=== PATIENT | male | born 1955 | race Caucasian/White ===

== ENCOUNTER → 2024-01-28 | Outpatient (CLI) | payer OTHER, SELFPAY ==
--- NOTE | 2024-01-28 13:00 | XR_ITS ---
Examination: Steroid injection right hip joint with imaging guidance Fluoroscopy AP right hip single view. Exam date and time: January 28, 2024 1239 hours INDICATIONS: Right hip pain 2 years, osteoarthritis right hip Informed consent provided. Technique: A timeout was completed verifying correct patient, procedure, site, positioning. The patient was placed in supine position appropriate for the steroid injection The patient's site was prepped and draped in sterile fashion 5 cc 1% lidocaine administered locally for anesthesia. Sterile drape applied, maximum barrier sterile technique. Utilizing fluoroscopic guidance, 23-gauge needle placed in the right hip joint 1 cc Kenalog 40 in 5 cc 0.25% Marcaine introduced into the right hip joint The patient was in satisfactory and stable condition on completion of the procedure Attending radiologist was present for the entire procedure Estimated blood loss 0 cc. Impression: Successful steroid injection right hip joint with imaging guidance Fluoroscopy 0.1 minute Radiation dose 2.35 milligray 1 spot AP fluoroscopic right hip film .
== END | disposition home or self-care (01) ==
PROVIDERS: PCP Nurse Practitioner Family; Referring Provider Nurse Practitioner Family; Visit Provider Nurse Practitioner Family
DX: M54.17 Radiculopathy, lumbosacral region (principal)
CPT/HCPCS: 20610; 77002

== ENCOUNTER → 2024-02-04 | Outpatient (CLI) | payer OTHER, SELFPAY ==
--- NOTE | 2024-02-04 14:30 | XR_ITS ---
Examination: MRI lumbar spine without contrast Date and time of exam: February 04, 2024 1502 hours INDICATIONS: Low back pain radiating down the right leg beginning 6 weeks ago TECHNIQUE: Multiple MRI axial sagittal lumbar spine images FINDINGS: Adequate alignment lumbar vertebral bodies on the lateral view Significant disc narrowing L4-L5 severe disc narrowing L5-S1 No lumbar fracture L5-S1 4 mm central lumbar disc bulge contiguous with the right and left S1 nerve roots and producing mild right L5 ganglionic compression L4-L5 partially extruded central left paracentral 5 mm disc bulge displacing the left L5 nerve root L3-L4 4 mm central lumbar disc bulge L2-L3 no disc protrusion L1-L2 no disc protrusion Impression: L5-S1 4 mm central lumbar disc bulge contiguous with the right and left S1 nerve roots and producing mild right L5 ganglionic compression L4-L5 5 mm partially extruded central left paracentral disc displacing the left L5 nerve root L3-L4 4 mm central lumbar disc
== END | disposition home or self-care (01) ==
PROVIDERS: PCP Nurse Practitioner Family; Referring Provider Nurse Practitioner Family; Visit Provider Nurse Practitioner Family
DX: M51.379 Other intervertebral disc degeneration, lumbosacral region without mention of lumbar back pain or lower extremity pain (principal); M51.369 Other intervertebral disc degeneration, lumbar region without mention of lumbar back pain or lower extremity pain; M51.26 Other intervertebral disc displacement, lumbar region; G95.20 Unspecified cord compression
CPT/HCPCS: 72148

== ENCOUNTER 2024-03-17 07:55 | Day surgery (SDC) | payer OTHER, SELFPAY ==
[2024-03-17] VITALS (13 sets, daily range): BP systolic 115–139; BP diastolic 74–94; PULSE 48–64; RESP 11–19; TEMP 36.2–37; O2SAT 95–99; BMI 32.4
--- NOTE | 2024-03-17 08:20 | SUR.PREOP ---
Most medical hx gather from records, pt denies having depression, acid reflux or GERD and BPH however pt is taking medications for tx.
--- NOTE | 2024-03-17 08:28 | SUR.PREOP ---
Pt did not bring list of home meds as asked during the phone called on Sunday. Pt confirmed that the meds on H&P is accurate and that those are the only medications he is curing taking. Pt stated that he has high tolerance to sedation and may needs a lot to sedate him.
[2024-03-17] MEDS: DiphenhydrAMINE INJ 50 MG/ML VIAL 25 MG IV (09:49)
[2024-03-17] MEDS: fentaNYL CIT INJ 50 mCg/ML AMP 2ML (ASD USE ONLY) IV (09:52)
[2024-03-17] MEDS: MEPERIDINE INJ 25 MG/ML VIAL (ASD USE ONLY) IV (09:54)
[2024-03-17] MEDS: MIDAZOLAM INJ 1 MG/ML VIAL 2 ML (ASD USE ONLY) 2 MG IV (09:54)
[2024-03-17] MEDS: ONDANSETRON INJ 2 MG/ML INJ 2 ML 4 MG IV (10:09)
== END 2024-03-17 10:57 | disposition home or self-care (01) ==
PROVIDERS: PCP Family Medicine; Referring Provider Specialist; Visit Provider Specialist
PROC: 0DBE8ZX Excision of Large Intestine, Via Natural or Artificial Opening Endoscopic, Diagnostic (ICD-10-PCS; CPT 45380; principal; 2024-03-17 09:00)
DX: Z12.11 Encounter for screening for malignant neoplasm of colon (principal); Z86.0100 Personal history of colon polyps, unspecified; D12.3 Benign neoplasm of transverse colon; D12.2 Benign neoplasm of ascending colon; D12.4 Benign neoplasm of descending colon; K64.9 Unspecified hemorrhoids; K57.30 Diverticulosis of large intestine without perforation or abscess without bleeding
CPT/HCPCS: 45380; 45385; A4649; J1200; J2175; J2250; J2405; J3010

== ENCOUNTER → 2024-06-05 | Outpatient (CLI) | payer OTHER, SELFPAY ==
--- NOTE | 2024-06-05 | XR_ITS ---
Examination:Right hip AP, lateral, AP pelvis 3 views Technique: Hip AP lateral, AP pelvis, 3 views Exam date and time:June 05, 2024 0802 hrs. Indications: Right hip pain beginning 3 months ago. Findings: Moderate right hip osteoarthritis No hip fracture or hip dislocation Mild to moderate left hip osteoarthritis Bones of the pelvis intact Impression: Moderate right hip osteoarthritis.
[2024-06-05 08:05] LABS: Collection Type, Urine Clean Catch; Squamous Epithelial Cell,Urine 0 /hpf (0-5)
[2024-06-05 08:34] LABS: Bilirubin,Urine Negative (Negative); Blood,Urine Negative (Negative); Clarity,Urine Clear (Clear/Hazy); Color,Urine Lt-Yellow (Lt Yel-Yel); Culture Indicated,Urine Not Indicated; Glucose, Urine Negative (Negative); Ketones,Urine Negative (Negative); Leukocyte Esterase,Urine Negative (Negative); Nitrite,Urine Negative (Negative); PH,Urine 5.5 (5.0-7.0); Protein,Urine Negative (Neg - Trace); RBC,Urine 1 /hpf (0-3); Specific Gravity,Urine 1.022 (1.001-1.035); Urobilinogen,Urine Negative mg/dL (0.0-1.0); WBC,Urine < 1 /hpf (0-5)
[2024-06-05 08:36] LABS: Basophils % (Auto) 1 % (0-2.5); Eosinophils # (Auto) 0.2 Thou/mm3 (0.0-0.5); Eosinophils % (Auto) 4 % (0-10); Hematocrit 40.9 % (41.0-53.0); Hemoglobin 14.1 g/dL (13.5-16.0); Immature Granulocytes % (Auto) 0 % (0-0); Immature Granulocytes Auto 0.01 Thou/mm3 (0.00-0.00); Lymphocytes % (Auto) 24 % (10-50); Mean Corpuscular HGB Conc 34.5 g/dl (31.0-37.0); Mean Corpuscular Hemoglobin 32.3 pg (25.0-35.0); Mean Corpuscular Volume 94 fL (80-100); Monocytes # (Auto) 0.3 Thou/mm3 (0.0-0.8); Monocytes % (Auto) 8 % (0-12); Neutrophils # (Auto) 2.6 Thou/mm3 (1.8-7.7); Neutrophils % (Auto) 63 % (37-80); Nucleated Red Blood Cell % 0 /100 WBC (0); Platelet Count 189 Thou/mm3 (140-440); RDW Standard Deviation 45.5 fL (35.1-43.9); Red Blood Count 4.37 Miln/mm3 (4.50-5.90); White Blood Count 4.1 Thou/mm3 (3.8-10.6)
[2024-06-05 08:54] LABS: Alanine Aminotransferase 23 U/L (10-49); Albumin, Serum 4.5 gm/dL (3.4-4.8); Albumin/Globulin Ratio 1.8 (1.2-2.2); Alkaline Phosphatase 40 U/L (46-116); Anion Gap 8 (7-16); Aspartate Amino Transferase 20 U/L (0-34); BUN/Creatinine Ratio 18 Ratio (12-20); Bilirubin,Total 1.1 mg/dL (0.3-1.2); Blood Urea Nitrogen 23 mg/dL (9-23); Calcium 9.8 mg/dL (8.3-10.6); Calcium (Corrected) 9.8 mg/dL (8.5-10.1); Carbon Dioxide 28.2 mMol/L (20.0-31.0); Cardiac Risk Estimate 2.9 RATIO (4.0-6.7); Chloride 105 mMol/L (98-107); Cholesterol 113 mg/dL (132-200); Creatinine (Component) 1.3 mg/dL (0.6-1.3); Globulin 2.5 gm/dL (2.3-3.5); Glucose 105 mg/dL (74-106); HDL Cholesterol 39 mg/dL (40-60); LDL Cholesterol,Calculated 57 mg/dL (0-130); Osmolality,Calculated 284 (275-295); Potassium 4.4 mMol/L (3.4-5.1); Sodium 141 mMol/L (136-145); Thyroid Stimulating Hormone 2.56 uIU/mL (0.55-4.78); Triglycerides 84 mg/dL (30-150); eGFR 59 See Note
== END | disposition home or self-care (01) ==
LOC: COPL 06:57
PROVIDERS: Nurse Practitioner Family; PCP Physical Medicine & Rehabilitation Pain Medicine; Referring Provider Family Medicine; Visit Provider Radiology Diagnostic Radiology
DX: M16.11 Unilateral primary osteoarthritis, right hip (principal); Z00.00 Encounter for general adult medical examination without abnormal findings; I13.0 Hypertensive heart and chronic kidney disease with heart failure and stage 1 through stage 4 chronic kidney disease, or unspecified chronic kidney disease; N18.9 Chronic kidney disease, unspecified; I25.118 Atherosclerotic heart disease of native coronary artery with other forms of angina pectoris
CPT/HCPCS: 36415; 73502; 80053; 80061; 81001; 84443; 85025

== ENCOUNTER → 2024-09-11 | Outpatient (CLI) | payer OTHER, SELFPAY ==
[2024-09-11 08:45] LABS: Iron 81 mcg/dL (65-175); Prostate Specific Antigen 2.06 ng/mL (0-4.00)
[2024-09-11 08:47] LABS: Vitamin B12 961 pg/mL (211-911)
[2024-09-15 07:46] LABS: Fecal Globin Result NOT DETECTED (NOT DETECTED)
== END | disposition home or self-care (01) ==
LOC: COPL 07:18
PROVIDERS: PCP Family Medicine; Referring Provider Nurse Practitioner Family; Visit Provider Nurse Practitioner Family
DX: N40.1 Benign prostatic hyperplasia with lower urinary tract symptoms (principal); D64.9 Anemia, unspecified; R97.20 Elevated prostate specific antigen [PSA]
CPT/HCPCS: 36415; 82274; 82607; 83540; 84153; G0328

== ENCOUNTER → 2024-12-17 | Outpatient (CLI) | payer OTHER, SELFPAY ==
[2024-12-17 08:50] LABS: Anion Gap 10 (7-16); BUN/Creatinine Ratio 14 Ratio (12-20); Blood Urea Nitrogen 15 mg/dL (9-23); Calcium 8.9 mg/dL (8.3-10.6); Carbon Dioxide 25.4 mMol/L (20.0-31.0); Chloride 107 mMol/L (98-107); Creatinine (Component) 1.1 mg/dL (0.6-1.3); Glucose 106 mg/dL (74-106); Osmolality,Calculated 283 (275-295); Potassium 4.2 mMol/L (3.4-5.1); Sodium 142 mMol/L (136-145); eGFR > 60 See Note
== END | disposition home or self-care (01) ==
LOC: COPL 07:08
PROVIDERS: PCP Family Medicine; Referring Provider Nurse Practitioner Family; Visit Provider Nurse Practitioner Family
DX: I13.0 Hypertensive heart and chronic kidney disease with heart failure and stage 1 through stage 4 chronic kidney disease, or unspecified chronic kidney disease (principal); N18.9 Chronic kidney disease, unspecified
CPT/HCPCS: 36415; 80048